=== PATIENT | male | born 1985 | race Hispanic/Latino ===

== ENCOUNTER 2019-01-05 17:31 | Emergency (ER) | payer MEDICAID, OTHER ==
[2019-01-05] MEDS ORDERED: IBUPROFEN 600 MG TABLET ONE (19:35)
== END 2019-01-05 19:49 | disposition home or self-care (01) ==
LOC: EDH 17:31 → EEVIPCON 17:31 → EDH 19:49
DX: S02.2XXA Fracture of nasal bones, initial encounter for closed fracture (principal); E11.9 Type 2 diabetes mellitus without complications; Z72.0 Tobacco use; Y04.0XXA Assault by unarmed brawl or fight, initial encounter; Y93.89 Activity, other specified; Y92.89 Other specified places as the place of occurrence of the external cause; Y99.8 Other external cause status
CPT/HCPCS: 70450; 70486; 72125